=== PATIENT | female | born 1970 | race Hispanic/Latino ===

== ENCOUNTER 2017-11-17 20:11 | Emergency (ER) | payer BC, OTHER ==
[2017-11-17] VITALS (7 sets, daily range): BP systolic 132–252; BP diastolic 78–131
[~2017-11-17] VITALS: Ht 167.6 cm; Wt 65.8 kg
[~2017-11-17 20:11] MED LIST: ATEN25TA PO; HYDR12.53 PO; LISI40TA PO
[2017-11-17] MEDS ORDERED: APRESOLINE ONE (20:28)
[2017-11-17] MEDS ORDERED: ATIVAN ONE (20:31)
--- NOTE | 2017-11-17 20:31 | ER.PDOC ---
General Chief Complaint: Headache Stated Complaint: HEADACHE Time seen by MD: 20:15 Source: patient, family History of Present Illness Initial Comments Pt has hx of chronic recurrent tension headaches and HTN. Tonight she had very stressful day at work and started with bad headache when she got home at 6 PM. She took 2 excedrin migraine and clonidine 0.1 mg without any relief. When she arrived here here systolic was 252. Timing/Duration: 4-6 hours Severity/Quality: severe Prior Headaches/Recent Trauma: frequent headaches, chronic headaches Associated Symptoms: denies symptoms Modifying Factors: worse with cold therapy, worse with exposure to light, worse with immobilization, worse with medication, worse with movement, worse with rest, worse with other Allergies: Coded Allergies: sumatriptan (Unverified Allergy, Unknown, 11/02/14) Past Medical History Medical History: hypertension Surgical History: cholecystectomy, hysterectomy, other LMP (females 10-50): hysterectomy Social History Smoking: non-smoker Alcohol Use: none Drug Use: none Reviewed Nursing Reviewed: Vital Signs, Abn. Noted, Nursing Assessment Review of Systems Constitutional: denies no symptoms reported, denies see HPI, denies chills, denies diaphoresis, denies fever, denies malaise, denies weakness, denies other Eyes: denies no symptoms reported, denies see HPI, denies blindness, denies blurred vision, denies drainage, denies decreased acuity, denies foreign body sensation, denies inflammation, denies pain, denies photophobia, denies previous injury, denies shadows, denies tunnel vision, denies vision change, denies contact lenses, denies glasses, denies other Ears, Nose, Mouth, Throat: denies no symptoms reported, denies see HPI, denies ear pain, denies ear discharge, denies nose pain, denies nose discharge, denies epistaxis, denies mouth pain, denies mouth swelling, denies loose teeth, denies throat pain, denies throat swelling Respiratory: denies no symptoms reported, denies see HPI, denies cough, denies orthopnea, denies shortness of breath, denies stridor, denies wheezing, denies other Cardiovascular: denies no symptoms reported, denies see HPI, denies chest pain , denies edema, denies palpitations, denies syncope, denies other Gastrointestinal: denies no symptoms reported, denies see HPI, denies abdominal pain, denies constipation, denies diarrhea, denies nausea, denies vomiting, denies other Genitourinary: denies no symptoms reported, denies see HPI, denies discharge, denies dysuria, denies frequency, denies hematuria, denies pain, denies other Musculoskeletal: denies no symptoms reported, denies see HPI, denies back pain , denies gout, denies joint pain, denies joint swelling, denies muscle pain, denies muscle stiffness, denies neck pain, denies other Psychiatric/Neurological: denies no symptoms reported, denies see HPI, denies anxiety, denies depressed, denies emotional problems; headache; denies numbness , denies paresthesia, denies pre-existing deficit, denies seizure, denies tingling, denies tremors, denies weakness, denies other Physical Exam General Appearance: WD/WN, Moderate Distress Head/Eyes: eyes nml inspection, no facial swelling, no nystagmus, PERRL ENT: nml ENT inspection, pharynx nml Neck: nml inspection, Supple Cardiovascular: Normal Peripheral Pulses, Regular Rate, Rhythm, No Edema, No Gallop, No JVD, No Murmur Respiratory: chest non-tender, lungs clear, normal breath sounds, no respiratory distress, no accessory muscle use Gastrointestinal: Normal Bowel Sounds, No Organomegaly, No Pulsatile Mass, Non Tender, Soft Back: Normal Inspection, No CVA Tenderness, No Vertebral Tenderness Extremities: Normal Range of Motion, Non-Tender, Normal Inspection, No Pedal Edema, No Calf Tenderness, Normal Capillary Refill Psychiatric: Alert, Oriented x 3 Cranial Nerves: Normal Hearing, Normal Speech, PERRL Coordination/Gait: Normal Finger to Nose, Normal Gait Motor/Sensory: No Motor Deficit, No Sensory Deficit, No Pronator Drift, Negative Babinski's Sign Skin: Warm/Dry, Normal Color Lymphatic: No Adenopathy Results/Orders Results/Orders Laboratory Tests Test 11/17/17 20:15 White Blood Count 10.8 10^3/uL (4.5-11.0) Red Blood Count 4.73 10^6/uL (4.00-5.20) Hemoglobin 14.5 g/dL (12.0-15.0) Hematocrit 42.0 % (36.0-46.0) Mean Corpuscular Volume 88.8 fL (78-100) Mean Corpuscular Hemoglobin 30.7 pg (26-34) Mean Corpuscular Hemoglobin Concent 34.5 g/dL (33-37) Red Cell Distribution Width 13.0 % (11.5-14.5) Platelet Count 241 10^3/uL (150-400) Mean Platelet Volume 11.5 fL (7.8-11.0) Neutrophils (%) (Auto) 50.2 % (41.0-85.0) Lymphocytes (%) (Auto) 38.2 % (24.0-44.0) Monocytes (%) (Auto) 8.3 % (5.0-12.0) Neutrophils # (Auto) 5.4 10^3/uL (1.8-7.7) Lymphocytes # (Auto) 4.1 10^3/uL (1.0-4.8) Monocytes # (Auto) 0.9 10^3/uL (0.3-0.8) Absolute Immature Granulocyte (auto 0.04 10^3 u/L (0-2) Eosinophils % 2.3 % (0.0-5.0) Basophils % 0.6 % (0.0-0.2) Basophils # 0.1 10^3/uL (0.0-0.1) Eosinophil Count 0.3 10^3/uL (0.0-0.2) Sodium Level 140 mmol/L (132-145) Potassium Level 3.8 mmol/L (3.6-5.2) Chloride Level 104.0 mmol/L (96-109) Carbon Dioxide Level 21.0 mmol/L (20.0-32) Anion Gap 18.8 Blood Urea Nitrogen 13 mg/dL (7-18) Creatinine 1.05 mg/dL (0.59-1.40) Estimated GFR () 67.7 (>/=60) BUN/Creatinine Ratio 12.0 Glucose Level 121 mg/dL (70-110) Calcium Level 9.2 mg/dL (8.4-10.5) Total Bilirubin 0.5 mg/dL (0.2-1.0) Aspartate Amino Transf (AST/SGOT) 25 U/L (0-35) Alanine Aminotransferase (ALT/SGPT) 41 U/L (12-78) Alkaline Phosphatase 100 U/L (50-136) Total Creatine Kinase 77 U/L (26-192) Creatine Kinase MB 0.6 ng/mL (0.5-3.6) Troponin I < 0.02 ng/mL (0.00-0.05) Pro-B-Type Natriuretic Peptide 152 pg/mL (0-125) Total Protein 8.0 g/dL (6.4-8.2) Albumin 4.2 g/dL (3.4-5.0) Globulin 3.8 Percent Immature Gran (Cell Imm) 0.40 % (0.00-0.50) Administered Medications Medications (Trade) Dose Ordered Sig/Rocio Route PRN Reason Start Time Stop Time Status Last Admin Dose Admin Hydralazine HCl (Apresoline) 20 mg STAT STAT IV 11/17/17 20:26 11/17/17 20:27 DC 11/17/17 20:47 Amlodipine Besylate (Norvasc) 10 mg STAT PO 11/17/17 20:30 12/17/17 20:29 11/17/17 21:27 Lorazepam (Ativan) 1 mg STAT STAT IV 11/17/17 20:32 11/17/17 20:33 DC 11/17/17 20:48 Morphine Sulfate (Morphine Sulfate) 2 mg STAT PRN IV PAIN 11/17/17 21:00 12/17/17 20:59 11/17/17 20:53 Progress Progress CRIT CARE: Pt initial BP was 252/131. I inserted an 18 ga EJ on left side as RNs couldn't get a good IV in her. I gave her hydralazine 20 MG IV and Ativan 1 mg IV. This began to reduce her BP fairly rapidly. I also ordered morphine 2 mg IV. After thisd her headache resolved. Her BP cam down into 130s systolic. It started to increase into 140s so I gave her norvasc 10 mg PO. After that she was pain free and felt much better. I will give her lisinopril 20 mg PO then dc her. Pt states she has issues with anxiety and depression and was picked on at work. I will prescribe paxcil 20 mg daily #30 EKG/XRAY/CT/US EKG: NSR (rater 65; LAD; otyherwise completely normal EKG) XRAY: chest XRAY Comments: NAD Departure Time of Disposition: 22:15 Disposition: 01 HOME, SELF-CARE Impression: Primary Impression: Hypertensive crisis Additional Impression: Anxiety Condition: Stable Patient Instructions: Anxiety and Panic Attacks, Hypertension Referrals: PCP,UNKNOWN (PCP) PRIMARY CARE PROVIDER Additional Instructions: RX Norvasc 10 mg PO DAILY #30 Lisinopril 20 mg daily #30 Paxil 20 mg PO Daily #30 stop taking clonidine Duration or Time Spent with Pa: 50 Critical Care Note Total Time (mins): 45 Comments excluding procedures VICKY BAILEY MD Nov 17, 2017 20:31
[2017-11-17] MEDS ORDERED: NS 1000ML 1,000 ML ONE (20:41)
[2017-11-17] MEDS ORDERED: VASOTEC IV STA (20:45)
[2017-11-17 20:46] LABS: BASOPHIL # 0.1 10^3/uL (0.0-0.1); BASOPHIL % 0.6 % (0.0-0.2); EOSINOPHIL # 0.3 10^3/uL (0.0-0.2); EOSINOPHIL % 2.3 % (0.0-5.0); HEMOGLOBIN 14.5 g/dL (12.0-15.0); LYMPHOCYTES # 4.1 10^3/uL (1.0-4.8); LYMPHOCYTES % 38.2 % (24.0-44.0); MEAN CELL HGB 30.7 pg (26-34); MEAN CELL HGB CONCENTRATION 34.5 g/dL (33-37); MEAN CORP VOLUME 88.8 fL (78-100); MEAN PLATELET VOLUME 11.5 fL (7.8-11.0); MONOCYTES # 0.9 10^3/uL (0.3-0.8); MONOCYTES % 8.3 % (5.0-12.0); NEUTROPHIL # 5.4 10^3/uL (1.8-7.7); NEUTROPHILS % 50.2 % (41.0-85.0); WHITE BLOOD CELL 10.8 10^3/uL (4.5-11.0)
[2017-11-17] MEDS: APRESOLINE IV STA (20:47)
[2017-11-17] MEDS: ATIVAN IV STA (20:48)
[2017-11-17] MEDS ORDERED: MORPHINE SULFATE ONE (20:48)
--- NOTE | 2017-11-17 20:48 | PCM.EKG ---
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
--- NOTE | 2017-11-17 20:48 | NUR ---
RT FISHER, RT IN ROOM FOR EKG AT THIS TIME.
[2017-11-17] MEDS: MORPHINE SULFATE IV PRN (20:53)
--- NOTE | 2017-11-17 20:55 | NUR ---
UPDATE PT PROVIDED BLANKET AND LIGHTS TURNED DOWN AT THIS TIME.
--- NOTE | 2017-11-17 21:08 | NUR ---
JACKIE CHAVEZ IN PT ROOM TO TAKE PT FOR XRAY AT THIS TIME.
[2017-11-17 21:13] LABS: ALANINE AMINOTRANSFERASE(ML) 41 U/L (12-78); ALKALINE PHOSPHATASE 100 U/L (50-136); ASPARTATE AMINO TRANSFERASE 25 U/L (0-35); CALCIUM 9.2 mg/dL (8.4-10.5); GLUCOSE 121 mg/dL (70-110)
--- NOTE | 2017-11-17 21:21 | NUR ---
UPDATE PT BACK TO ROOM AT THIS TIME.
[2017-11-17] MEDS ORDERED: NORVASC ONE (21:22)
[2017-11-17] MEDS: NORVASC PO SCH (21:27)
--- NOTE | 2017-11-17 22:08 | DIREP ---
PROCEDURE:CHEST 2 VIEWS COMPARISON:None. INDICATIONS:stroud FINDINGS: LUNGS/PLEURA:No significant pulmonary parenchymal abnormalities. No effusions. VASCULATURE:Normal. Unremarkable pulmonary vasculature. CARDIAC:Normal. No cardiac silhouette abnormality or cardiomegaly. MEDIASTINUM:Normal. No visible mass or adenopathy. BONES:Mild anterior wedging of several mid thoracic vertebra with mild kyphosis OTHER:Negative. CONCLUSION: 1. Mild anterior wedging of several mid thoracic vertebra with mild kyphosis. These are probably old but correlate for pain. No acute cardiopulmonary disease. Dictated by: Karsten Rodriguez M.D. on 11/17/2017 at 10:06 PM
[2017-11-17] MEDS ORDERED: ZESTRIL PO SCH (22:30)
== END 2017-11-17 22:22 | disposition home or self-care (01) ==
LOC: ER 20:11
DX: I16.9 Hypertensive crisis, unspecified (principal); I10 Essential (primary) hypertension; F41.9 Anxiety disorder, unspecified; Z90.49 Acquired absence of other specified parts of digestive tract; Z90.710 Acquired absence of both cervix and uterus; Z88.8 Allergy status to other drugs, medicaments and biological substances
CPT/HCPCS: 36415; 71046; 80053; 82550; 82553; 83880; 84484; 85025; 93005; 96374; 96375; 99291; J0360; J2060; J2270; J7030

== ENCOUNTER 2021-02-21 16:08 | Emergency (ER) | payer BC ==
[~2021-02-21] VITALS: Ht 167.6 cm; Wt 86.2 kg
[~2021-02-21 16:08] MED LIST changes: -LISI40TA PO; +LISI40TA10 PO
[2021-02-21 17:19] VITALS: BP 231/122
[2021-02-21] MEDS ORDERED: APRESOLINE IV STA ×3 (17:19→18:42)
[2021-02-21] MEDS ORDERED: ZOFRAN IV STA (17:19)
--- NOTE | 2021-02-21 17:22 | PCM.EKG ---
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1970 Requested By: LUKE HAMPTON Order Number: [id number] Reading MD: Luke HAMPTON Measurements Intervals [place] Rate: 76 P: 68 ID: [id number] QRS: -83 QRSD: 98 T: 71 QT: 464 QTc: 522 Interpretive Statements Sinus rhythm Probable left atrial enlargement Left anterior fascicular block Abnormal R-wave progression, late transition Prolonged QT interval Baseline wander in lead(s) II,III,aVF Compared to ECG 11/17/2017 20:52:14 Left anterior fascicular block now present Prolonged QT interval now present Left-axis deviation no longer present Electronically Signed On 02-24-2021 7:24:06 [employer] by Luke HAMPTON Please click the below link to view image of tracing.
[2021-02-21] MEDS ORDERED: ZOFRAN ONE (17:29)
[2021-02-21] MEDS ORDERED: APRESOLINE ONE ×2 (17:29→18:34)
--- NOTE | 2021-02-21 17:35 | ER.PDOC ---
General Chief Complaint: Requesting Medical Care Stated Complaint: BODYACHES,VOMITING TRAVEL OUT OF US: No Time seen by MD: 17:33 Source: patient Exam Limitations: no limitations History of Present Illness Initial Comments Generalized body aches and vomiting for 2 days. Chest also hurts and he her blood pressure is high. No diarrhea or abdominal pain. No fever or chills. She skipped taking some of her blood pressure medications today because of vomiting. Severity: moderate Associated Symptoms: chest pain Allergies: Coded Allergies: sumatriptan (Unverified Allergy, Unknown, 11/02/14) Past Medical History Medical History: hypertension Surgical History: no surgical history Family History Significant Family History: no pertinent family hx Social History Smoking: non-smoker Alcohol Use: none Drug Use: none Review of Systems Constitutional: no symptoms reported EENTM: no symptoms reported Respiratory: no symptoms reported Cardiovascular: see HPI Gastrointestinal: see HPI Genitourinary: no symptoms reported All Other Systems: Reviewed and Negative Physical Exam General Appearance: No Apparent Distress, WD/WN Neck: Non-Tender, Full Range of Motion, Supple, Normal Inspection Respiratory: chest non-tender, lungs clear, normal breath sounds, no r espiratory distress, no accessory muscle use CVS: reg rate & rhythm, no murmur, no gallop, pulses nml, nml capillary refill Gastrointestinal: Normal Bowel Sounds, No Organomegaly, No Pulsatile Mass, Non Tender Back: Normal Inspection, No CVA Tenderness, No Vertebral Tenderness Extremities: Normal Range of Motion Neurologic/Psychiatric: doll wig hackler II-XII NML as Tested Skin: Normal Color Results/Orders Results/Orders Orders - LUKE HAMPTON MD Cbc With Auto Diff (02/21/21 17:19) Creatine Kinase (02/21/21 17:19) Xr Chest 1v (02/21/21 17:19) Ekg-Routine (02/21/21 17:19) Troponin I High Sensitivity (02/21/21 17:19) Basic Metabolic Panel (02/21/21 17:19) Covid19 Antigen Carla Marah (02/21/21 17:19) Hydralazine Hcl (Apresoline) (02/21/21 17:19) Ondansetron Hcl/Pf (Zofran) (02/21/21 17:19) Hydralazine Hcl (Apresoline) (02/21/21 17:29) Ondansetron Hcl/Pf (Zofran) (02/21/21 17:29) Hydralazine Hcl (Apresoline) (02/21/21 17:29) Lipase (02/21/21 17:19) Potassium Chloride (Klor-Con 10) (02/21/21 18:33) Hydralazine Hcl (Apresoline) (02/21/21 18:34) Hydralazine Hcl (Apresoline) (02/21/21 18:42) Potassium Chloride (Klor-Con 10) (02/21/21 18:42) Vital Signs Date Time Temp Pulse Resp B/P (MAP) Pulse Ox O2 Delivery O2 Flow Rate FiO2 02/21/21 17:36 84 231/122 02/21/21 17:19 98.0 84 25 02/21/21 17:19 98.0 84 25 100 Room Air 02/21/21 17:19 98.0 84 25 100 Administered Medications Medications (Trade) Dose Ordered Sig/Rocio Route PRN Reason Start Time Stop Time Status Last Admin Dose Admin Hydralazine HCl (Apresoline) 20 mg STAT STAT IV 02/21/21 17:29 02/21/21 17:30 DC 02/21/21 17:36 20 MG Ondansetron HCl (Zofran) 4 mg STAT STAT IV 02/21/21 17:19 02/21/21 17:22 DC 02/21/21 17:36 4 MG Laboratory Tests Test 02/21/21 17:18 02/21/21 17:30 02/21/21 17:50 SARS-CoV-2 Antigen (Rapid) NEGATIVE (NEGATIVE) White Blood Count 5.9 10^3/uL (4.5-11.0) Red Blood Count 4.77 10^6/uL (4.00-5.20) Hemoglobin 14.3 g/dL (12.0-15.0) Hematocrit 44.2 % (36.0-46.0) Mean Corpuscular Volume 92.7 fL (78-100) Mean Corpuscular Hemoglobin 30.0 pg (26-34) Mean Corpuscular Hemoglobin Concent 32.4 g/dL (33-36.5) L Red Cell Distribution Width 13.0 % (11.5-14.5) Platelet Count 222 10^3/uL (150-400) Mean Platelet Volume 11.3 fL (7.8-11.0) H Neutrophils (%) (Auto) 78.7 % (41.0-85.0) Lymphocytes (%) (Auto) 6.6 % (24.0-44.0) *L Monocytes (%) (Auto) 12.9 % (5.0-12.0) H Neutrophils # (Auto) 4.6 10^3/uL (1.8-7.7) Lymphocytes # (Auto) 0.39 10^3/uL1 (1.0-4.8) L Monocytes # (Auto) 0.8 10^3/uL (0.3-0.8) Absolute Immature Granulocyte (auto 0.09 10^3 u/L (0-2) Absolute Eosinophils (auto) 0.0 10^3/uL (0.0-0.2) Immature Granulocytes % 1.50 % (0.00-0.50) H Eosinophils % 0.0 % (0.0-5.0) Basophils % 0.3 % (0.0-0.2) H Basophils # 0.0 10^3/uL (0.0-0.1) Sodium Level 130 mmol/L (132-145) #L Potassium Level 2.9 mmol/L (3.6-5.2) L Chloride Level 95.0 mmol/L (96-109) L Carbon Dioxide Level 20.0 mmol/L (20.0-32) Glucose Level 152 mg/dL (70-110) H Blood Urea Nitrogen 10 mg/dL (7-18) Creatinine 0.85 mg/dL (0.59-1.40) Calcium Level 9.6 mg/dL (8.4-10.5) Anion Gap 17.9 Estimated GFR () 85.3 (>/=60) Est GFR (CKD-EPI)(Non-Afr [place]) 70.5 (>/=60) BUN/Creatinine Ratio 11.0 Total Creatine Kinase 69 U/L (26-192) Troponin I High Sensitivity 6 ng/L (0-50) Lipase 47 U/L (114-286) L Progress Progress Chemistry show a sodium of 130, potassium of 2.9, chloride of 95 and lipase of 47. Rest of chemistry is unremarkable. COVID-19 is negative. Cardiac enzymes are normal. CBC is unremarkable. Chest x-ray show no acute finding. Patient received hydralazine and her blood pressure significantly improved. She also received Zofran and Potassium Chloride. She is feeling better to go home. She has not vomited since she received Zofran. I counseled him about the necessity to follow-up with her PCP for her blood pressure medications to be adjusted. She voice understanding. BP 174/91 EKG/XRAY/CT/US EKG: NSR EKG Comments: HR 76, normal P axis ER DEPART Departure Time of Disposition: 18:47 Disposition: 01 HOME / SELF CARE / HOMELESS Impression: Primary Impression: Hypertensive urgency Additional Impressions: Nausea & vomiting Hypokalemia Condition: Improved Referrals: PCP,UNKNOWN (PCP) PRIMARY CARE PROVIDER Additional Instructions: Zofran ODT Potassium chloride Continue your blood pressure medications Keep a blood pressure diary Follow-up with your PCP in 2 to 3 days Return to ED if worsening symptoms or concerns Duration or Time Spent with Pa: 60 min Problem Qualifiers Additional Impressions: Nausea & vomiting Vomiting type: unspecified Qualified Codes: R11.2 - Nausea with vomiting, unspecified LUKE HAMPTON MD Feb 21, 2021 17:35
[2021-02-21 17:37] LABS: BASOPHIL % 0.3 % (0.0-0.2); LYMPHOCYTES # 0.39 10^3/uL1 (1.0-4.8); LYMPHOCYTES % 6.6 % (24.0-44.0); MONOCYTES # 0.8 10^3/uL (0.3-0.8); MONOCYTES % 12.9 % (5.0-12.0); NEUTROPHIL # 4.6 10^3/uL (1.8-7.7); NEUTROPHILS % 78.7 % (41.0-85.0); PLATELET COUNT 222 10^3/uL (150-400)
--- NOTE | 2021-02-21 17:48 | DIREP ---
PROCEDURE:CHEST 1 VIEW COMPARISON:[facility], CR, XRAY CHEST 2 VWS, 11/17/2017, 08:58 PM. INDICATIONS:Hypertensive crises FINDINGS: LUNGS/PLEURA:No significant pulmonary parenchymal abnormalities. No effusions. VASCULATURE:Normal. Unremarkable pulmonary vasculature. CARDIAC:Normal. No cardiac silhouette abnormality or cardiomegaly. MEDIASTINUM:Normal. No visible mass or adenopathy. BONES:Normal. No fracture or visible bony lesion. OTHER:EKG leads overlie the chest. CONCLUSION:No acute cardiopulmonary findings. Dictated by: Jose Denise M.D. on 02/21/2021 at 05:47 PM
--- NOTE | 2021-02-21 18:03 | NUR ---
Pt ambulatory upon arrival to ED rm2, c/o sudden onset body ache, N/V, cough. VS recorded, Orders received. Awaiting results.
--- NOTE | 2021-02-21 18:24 | NUR ---
REPORT REPORT GIVEN TO ONCOMING SHIFT.
[2021-02-21] MEDS ORDERED: KLOR-CON 10 PO ONE (18:33)
[2021-02-21] MEDS ORDERED: KLOR-CON 10 PO STA (18:42)
[2021-02-21 18:55] VITALS: BP 174/91
== END 2021-02-21 19:00 | disposition home or self-care (01) ==
LOC: ER 16:08
DX: I16.0 Hypertensive urgency (principal); E87.6 Hypokalemia; R11.2 Nausea with vomiting, unspecified; I10 Essential (primary) hypertension; Z20.822 Contact with and (suspected) exposure to COVID-19; Z79.899 Other long term (current) drug therapy
CPT/HCPCS: 71045; 80048; 82550; 83690; 84484; 85025; 87426; 93005; 96374; 96375; 96376; 99284; J0360 ×2; J2405; J3490

== ENCOUNTER 2021-07-22 17:58 | Emergency (ER) | payer BC ==
[~2021-07-22] VITALS: Ht 167.6 cm; Wt 77.1 kg
[2021-07-22 18:10] VITALS: BP 214/107
--- NOTE | 2021-07-22 18:14 | ER.PDOC ---
General Chief Complaint: Requesting Medical Care Stated Complaint: OPEN WOUND/RIGHT ANKLE Time seen by MD: 18:00 Source: patient Exam Limitations: no limitations History of Present Illness Initial Comments This 50-year-old female indicated that she dropped a heavy solid wooden door and had scraped down her left skin the right ankle and heel area. She has been using triple antibiotic ointment on the wounds but they are still all dried out and obviously. This happened one week ago today Where: home Context: direct blow Severity: mild Allergies: Coded Allergies: sumatriptan (Unverified Allergy, Unknown, 11/02/14) Past Medical History Medical History: hypertension Surgical History: cholecystectomy, hysterectomy Social History Smoking: non-smoker Alcohol Use: none Drug Use: none Review of Systems Constitutional: denies no symptoms reported, denies see HPI, denies chills, denies diaphoresis, denies fever, denies malaise, denies weakness, denies other EENTM: denies no symptoms reported, denies see HPI, denies eye pain, denies blurred vision, denies tearing, denies double vision, denies ear pain, denies ear discharge, denies nose pain, denies nose congestion, denies throat pain, denies throat swelling, denies mouth pain, denies mouth swelling, denies other Respiratory: denies no symptoms reported, denies see HPI, denies cough, denies orthopnea, denies shortness of breath, denies stridor, denies wheezing, denies other Cardiovascular: denies no symptoms reported, denies see HPI, denies chest pain, denies edema, denies palpitations, denies syncope, denies other Gastrointestinal: denies no symptoms reported, denies see HPI, denies abdominal pain, denies constipation, denies diarrhea, denies nausea, denies vomiting, denies other Genitourinary: denies no symptoms reported, denies see HPI, denies discharge, denies dysuria, denies frequency, denies hematuria, denies pain, denies other Musculoskeletal: no symptoms reported, see HPI; denies back pain, denies gout; joint pain; denies joint swelling, denies muscle pain, denies muscle stiffness, denies neck pain; other (abrasions distal leg and ankle) Skin: denies no symptoms reported, denies see HPI, denies change in color, denies change in hair/nails, denies dryness, denies lesions, denies lumps, denies rash, denies other Psychiatric/Neurological: denies no symptoms reported, denies see HPI, denies anxiety, denies depressed, denies emotional problems, denies headache, denies numbness, denies paresthesia, denies pre-existing deficit, denies seizure, denies tingling, denies tremors, denies weakness, denies other Physical Exam General Appearance: Alert, No Apparent Distress Foot: tenderness, ecchymosis Ankle: tenderness (Abrasion just above the lateral malleolus and below the lateral malleolus with some surrounding ecchymosis.), ecchymosis Knee: nml inspection, non-tender, nml ROM, no joint swelling Thigh/Hip: nml inspection Gait: normal Neuro/Vasc/Tendon: sensation nml, motor nml, no vascular compromise, tendon function nml Skin: warm/dry Head/ENT: nml inspection, pharynx nml Neck/Back: nml inspection, non-tender Abdomen: non-tender, pelvis stable Results/Orders Results/Orders Orders - MERNA GARNICA MD Diph,Pertuss(Acell),Tet Vac/Pf (Boostrix (07/22/21 18:30) Cbc With Auto Diff (07/22/21 18:15) Basic Metabolic Panel (07/22/21 18:15) Xr Ankle 3v Rt (07/22/21 18:20) Diph,Pertuss(Acell),Tet Vac/Pf (Boostrix (07/22/21 18:28) Vital Signs Date Time Temp Pulse Resp B/P (MAP) Pulse Ox O2 Delivery O2 Flow Rate FiO2 07/22/21 18:10 97.5 79 18 07/22/21 18:10 97.5 79 18 99 Room Air* 0 21 07/22/21 18:10 97.5 79 18 99 Administered Medications Medications (Trade) Dose Ordered Sig/Rocio Route PRN Reason Start Time Stop Time Status Last Admin Dose Admin Diphtheria/ Tetanus/Acell Pertussis (Boostrix) 0.5 ml ONCE ONCE IM 07/22/21 18:30 07/22/21 18:31 DC 07/22/21 18:29 0.5 ML Laboratory Tests Test 07/22/21 18:16 White Blood Count 8.7 10^3/uL (4.5-11.0) Red Blood Count 4.68 10^6/uL (4.00-5.20) Hemoglobin 14.4 g/dL (12.0-15.0) Hematocrit 44.4 % (36.0-46.0) Mean Corpuscular Volume 94.9 fL (78-100) Mean Corpuscular Hemoglobin 30.8 pg (26-34) Mean Corpuscular Hemoglobin Concent 32.4 g/dL (33-36.5) L Red Cell Distribution Width 12.4 % (11.5-14.5) Platelet Count 263 10^3/uL (150-400) Mean Platelet Volume 11.0 fL (7.8-11.0) Neutrophils (%) (Auto) 49.4 % (41.0-85.0) Lymphocytes (%) (Auto) 37.7 % (24.0-44.0) Monocytes (%) (Auto) 8.1 % (5.0-12.0) Neutrophils # (Auto) 4.3 10^3/uL (1.8-7.7) Lymphocytes # (Auto) 3.27 10^3/uL1 (1.0-4.8) Monocytes # (Auto) 0.7 10^3/uL (0.3-0.8) Absolute Immature Granulocyte (auto 0.04 10^3 u/L (0-2) Absolute Eosinophils (auto) 0.3 10^3/uL (0.0-0.2) H Immature Granulocytes % 0.50 % (0.00-0.50) Eosinophils % 3.6 % (0.0-5.0) Basophils % 0.7 % (0.0-0.2) H Basophils # 0.1 10^3/uL (0.0-0.1) Sodium Level 138 mmol/L (132-145) Potassium Level 3.5 mmol/L (3.6-5.2) L Chloride Level 102.0 mmol/L (96-109) Carbon Dioxide Level 28.4 mmol/L (20.0-32) Glucose Level 108 mg/dL (70-110) Blood Urea Nitrogen 8 mg/dL (7-18) Creatinine 0.75 mg/dL (0.59-1.40) Calcium Level 9.2 mg/dL (8.4-10.5) Anion Gap 11.1 Estimated GFR () 98.6 (>/=60) Est GFR (CKD-EPI)(Non-Afr [place]) 81.5 (>/=60) BUN/Creatinine Ratio 10.0 Progress Progress Tray ankle is negative for any fracture. CBC is normal complete metabolic panel normal except potassium slightly low at 3.5 nothing that needs treatment. ER DEPART Departure Time of Disposition: 18:44 Disposition: 01 HOME / SELF CARE / HOMELESS Impression: Primary Impression: Contusion of right ankle Additional Impression: Abrasion, right ankle, initial encounter Condition: Improved Referrals: PCP,UNKNOWN (PCP) PRIMARY CARE PROVIDER Duration or Time Spent with Pa: 15m Problem Qualifiers MERNA GARNICA MD Jul 22, 2021 18:14
[2021-07-22 18:26] LABS: BASOPHIL # 0.1 10^3/uL (0.0-0.1); BASOPHIL % 0.7 % (0.0-0.2); EOSINOPHIL # 0.3 10^3/uL (0.0-0.2); EOSINOPHIL % 3.6 % (0.0-5.0); LYMPHOCYTES # 3.27 10^3/uL1 (1.0-4.8); LYMPHOCYTES % 37.7 % (24.0-44.0); MEAN CORP HGB 30.8 pg (26-34); MONOCYTES # 0.7 10^3/uL (0.3-0.8); MONOCYTES % 8.1 % (5.0-12.0); NEUTROPHIL # 4.3 10^3/uL (1.8-7.7); NEUTROPHILS % 49.4 % (41.0-85.0); PLATELET COUNT 263 10^3/uL (150-400); RED CELL DISTRIBUTION WIDTH 12.4 % (11.5-14.5)
[2021-07-22] MEDS ORDERED: BOOSTRIX IM ONE ×2 (18:28→18:30)
[2021-07-22 18:34] LABS: CARBON DIOXIDE 28.4 mmol/L (20.0-32)
[2021-07-22 18:45] VITALS: BP 196/98
--- NOTE | 2021-07-22 18:50 | DIREP ---
PROCEDURE:XRAY ANKLE MIN 3VWS-RT COMPARISON:None. INDICATIONS:trauma FINDINGS: BONES:Talar dome is intact. No visible fracture of the medial malleolus, lateral malleolus or posterior malleolus. Equivocal fracture of the cuboid bone. JOINTS:No dislocation or joint effusion. SOFT TISSUES:Mild lateral soft tissue swelling OTHER:No additional findings. CONCLUSION:Mild lateral soft tissue swelling. Question fracture of the cuboid bone. Dictated by: Jose Denise M.D. on 07/22/2021 at 06:47 PM
== END 2021-07-22 19:00 | disposition home or self-care (01) ==
LOC: ER 17:58
DX: S90.01XA Contusion of right ankle, initial encounter (principal); S90.511A Abrasion, right ankle, initial encounter; I10 Essential (primary) hypertension; W20.8XXA Other cause of strike by thrown, projected or falling object, initial encounter; Y93.89 Activity, other specified; Y92.009 Unspecified place in unspecified non-institutional (private) residence as the place of occurrence of the external cause; Y99.8 Other external cause status; Z90.49 Acquired absence of other specified parts of digestive tract; Z90.710 Acquired absence of both cervix and uterus
CPT/HCPCS: 36415; 80048; 85025; 90471; 90715; 99284; 73610-RT